=== PATIENT | male | born 1985 | race Caucasian/White ===

== ENCOUNTER 2016-05-25 18:44 | Emergency (ER) | payer OTHER ==
--- NOTE | 2016-05-25 20:00 | ED Physician Documentation ---
General Adult - HISTORIAN Historian: patient - HPI Stated Complaint: fever x 1 week, sinus drainage Chief Complaint: General Adult Additional Information: Fever for 4 days. Sinus congestion. No thermometer, but feels cold, feverish, sweats. Saw Dr. Tucker on Friday, May 22, and had negative rapid strep and influenza. Took ibuprofen 600 mg twice today and then took another 200 mg this evening. - ROS CONST: fever, sweating EYES/ENT: sore throat, nasal congestion CVS/RESP: cough (occasional dry ) GI/: none - PAST HX Past History: hypertension Other History: none Surgeries/Procedures: none Home Medications: Ambulatory Orders Medication Instructions Recorded Lisinopril [Zestril] 10 mg PO QDAY 05/25/16 - SOCIAL HX Smoking History: cigarettes (quit 4 days ago) - FAMILY HX Family History: No - VITAL SIGNS Vital Signs: Vital Signs Temp Pulse Resp BP Pulse Ox 99.2 F 104 H 16 126/74 97 05/25/16 18:54 05/25/16 18:54 05/25/16 18:54 05/25/16 18:54 05/25/16 18:54 - REVIEWED ASSESSMENTS Nursing Assessment Reviewed: Yes Vitals Reviewed: Yes Progress - Progress Progress: Rapid strep negative. Sinusitis in the past. Will not treat with abx at this time, but continue symptomatic treatment. ED Results Lab/Radiology - Orders Orders: ED Orders Category Date Time Status Rapid Strep [GRP A STREP SCREEN] Stat Lab 05/25/16 Ordered General Adult Physical Exam - PHYSICAL EXAM GENERAL APPEARANCE: mild distress (sweaty, muffled voice) EENT: eye inspection normal, ENT inspection normal, no signs of dehydration, TM' s nml, pharyngeal erythema (mild) NECK: normal inspection, lymphadenopathy (1-2+ fantasma ant cerv, left ) RESPIRATORY: no resp distress, breath sounds normal CVS: reg rate & rhythm, heart sounds normal ABDOMEN: normal bowel sounds RECTAL: deferred BACK: normal inspection, no CVA tenderness SKIN: normal color, diaphoresis (mild) EXTREMITIES: normal range of motion (gait), no evidence of injury NEURO: CN's nml as tested, motor nml, sensation nml, cognition normal Discharge Clincal Impression: Sinusitis Additional Instructions: Continue 600 mg ibuprofen for fever, up to four times a day, or 1000 mg of Tylenol up to three times a day. You can continue the Robitussin and Dayquil. Try 10 mg of Claritin each day to ease the sinus congestion. Drink plenty of water. Avoid all smoke. Home Medications: Ambulatory Orders Lisinopril [Zestril] 10 mg PO QDAY 05/25/16 Condition: Fair Disposition: 01 HOME, SELF-CARE Decision to Admit: NO Decision Time: 20:32
[2016-05-25 20:50] VITALS: BP 109/72
== END 2016-05-25 20:40 | disposition home or self-care (01) ==
LOC: ED 18:44
DX: J32.9 Chronic sinusitis, unspecified (principal)
CPT/HCPCS: 87070; 87880; 99282; 99283

== ENCOUNTER 2018-12-03 15:18 | Outpatient (CLI) | payer BC ==
--- NOTE | 2018-12-04 14:11 | Diagnostic Imaging Report ---
LANDRY QUIROGA [facility] [address] [facility] [address] [id number] Report Submission Date: Dec 03, 2018 4:10:36 PM CDT Patient Study Name: JACOBY WALSH Date: Dec 03, 2018 3:40:12 PM CDT Modality Type: DX Gender: M Description: KNEE 3 VIEWS : 83 Institution: [facility] Physician: LANDRY QUIROGA Examination: Plain film right knee History: PT STATES TWISTED RT. KNEE TWICE IN ONE MONTH ( Findings: 3 views of the right knee demonstrates normal cortical margins. No fracture. No dislocation. No joint effusion. No soft tissue irregularity. Impression: No acute osseous abnormality Electronically signed on Dec 03, 2018 4:10:36 PM CDT by: Ronaldo MCWILLIAMS
== END 2018-12-03 15:20 ==
LOC: LAB 15:18
PROVIDERS: ATTEND Nurse Practitioner Family
DX: I10 Essential (primary) hypertension (principal); R63.5 Abnormal weight gain; S89.91XA Unspecified injury of right lower leg, initial encounter; X50.9XXA Other and unspecified overexertion or strenuous movements or postures, initial encounter
CPT/HCPCS: 73562